=== PATIENT | male | born 1945 | race Caucasian/White ===

== ENCOUNTER 2016-04-21 13:36 | Inpatient (IN) | payer OTHER ==
[2016-04-21] VITALS (8 sets, daily range): BP systolic 114–145; BP diastolic 57–68
[~2016-04-21] VITALS: Ht 177.8 cm; Wt 124.9 kg
[~2016-04-21 13:36] MED LIST: ALBUTEROL SULF8.5 GM IH; ALLOPURINAL; ALLOPURINOL300 MG PO; ASPIR-LOW81 MG PO; BENICAR; BENICAR20 MG GT; CALCIUM 500 MG1 EACH PO; CARVEDILOL; CARVEDILOL12.5 MG PO; CARVEDILOL25 MG PO; CENTRUM SILVER1 EAC3 PO; CO Q-10200 MG PO; COREG25 M1 PO; COUMADIN; ESSENTIAL DAIL1 EACH PO; FENOFIBRATE160 M1 PO; FISH OIL 1,0001 EAC7 PO; FISH OIL CONC1 EACH PO; GLUCOSA-CHOND-1 EACH PO; GLUCOSAMINE1000 MG PO; LANTUS 10100 UNITS/ SC; LANTUS 3 M100 UNITS/ SC; LANTUS 3 M100 UNITS1 SC; LASIX; LASIX20 MG PO; LIPITOR80 MG PO; LOPRESSOR50 MG PO; Levothroid,Synthroid GT; Lopressor GT; NOVOLOG 10100 UNITS/ SC; NOVOLOG PE100 UNITS/ SC; NOVOLOG100 UNIT/1 SQ; POTASSIUM-9999 MG PO; PROCARDIA XL30 MG PO; ROZEREM8 MG PO; SYNTHROID112 MCG PO; SYNTHROID125 MCG PO; SYNTHROID137 MCG PO; TRADJENTA5 MG PO; TRICOR; VIAGRA100 MG PO; VIAGRA25 MG PO; VIAGRA50 MG PO; VITAMIN B-6100 MG PO; VITAMIN B-6200 MG PO; VITAMIN D1000 INTUN PO; VITAMIN D31000 UNI2 PO; Vicodin,Norco 5/325 GT; WARFARIN SODIUM4 MG PO; WARFARIN SODIUM5 MG PO
[2016-04-21 15:02] LABS: HEMATOCRIT 15.4 % (38.0-50.0); MCH 24.3 PG (29.0-34.0); MCHC 29.2 G/DL (30.0-36.0); MCV 83.2 FL (86-99); MEAN PLAT.VOLUME 11.1 uM^3 (9.0-12.4); PLATELET COUNT 279 K/uL (156-360); RBC DIS.WIDTH-CV 17.5 % (11.8-14.6); RBC DIS.WIDTH-SD 47.7 % (39-53); RED BLOOD COUNT 1.85 M/uL (4.00-5.50); WHITE BLOOD COUNT 10.7 K/uL (4.1-10.2)
[2016-04-21 15:03] LABS: CHLORIDE 112 mEq/L (99-109); SODIUM 133 mEq/L (136-147)
[2016-04-21 15:05] LABS: GLUCOSE 208 mg/dL (70-99)
[2016-04-21 15:06] LABS: ANION GAP 8 MEQ/L (2-14)
[2016-04-21 15:09] LABS: GFR ESTIMATE (CALCULATED) > 59 mL/min/; PTT 47.6 (25-32); UREA NITROGEN (BUN) 64 mg/dL (9-23)
[2016-04-21 15:16] LABS: INTER. NORMALIZED RATIO 7.5; PROTHROMBIN TIME 81.4 (9.2-11.2); TROP-I INTERPRETATION NEGATIVE; TROPONIN-I 0.07 ng/mL (0.0-0.30)
[2016-04-21] MEDS ORDERED: CIALIS5 MG PO (15:59)
[2016-04-21] MEDS ORDERED: COREG6.25 M1 PO (16:00)
[2016-04-21] MEDS ORDERED: PEPTO-BISMOL T262 MG PO (16:01)
[2016-04-21] MEDS ORDERED: ALIGN4 MG PO (16:02)
[2016-04-21] MEDS ORDERED: HUMALOG100 UNIT/2 SC (16:05)
[2016-04-21] MEDS ORDERED: LEVEMIR100 UNIT/2 SC ×2 (16:08)
[2016-04-21] MEDS ORDERED: COZAAR50 MG PO (16:10)
[2016-04-21] MEDS ORDERED: COUMADIN2 MG PO (16:11)
[2016-04-21] MEDS ORDERED: VITAMIN B-6200 M1 PO (16:16)
[2016-04-21] MEDS ORDERED: TRAZODONE HCL50 MG PO (16:18)
[2016-04-21] MEDS ORDERED: PROAIR HFA8.5 GM IH (16:19)
[2016-04-21 23:23] LABS: POINT-OF-CARE METER ID UU13113747
[2016-04-22] VITALS (7 sets, daily range): BP systolic 122–172; BP diastolic 59–71
[2016-04-22 00:30] LABS: HEMATOCRIT 19.6 % (38.0-50.0); MCH 27.5 PG (29.0-34.0); MCHC 32.1 G/DL (30.0-36.0); MCV 85.6 FL (86-99); MEAN PLAT.VOLUME 11.9 uM^3 (9.0-12.4); PLATELET COUNT 246 K/uL (156-360); RBC DIS.WIDTH-CV 16.9 % (11.8-14.6); RBC DIS.WIDTH-SD 48.6 % (39-53); RED BLOOD COUNT 2.29 M/uL (4.00-5.50)
[2016-04-22 07:53] LABS: MCH 26.5 PG (29.0-34.0); MCHC 31.1 G/DL (30.0-36.0); MCV 85.2 FL (86-99); MEAN PLAT.VOLUME 11.3 uM^3 (9.0-12.4); PLATELET COUNT 246 K/uL (156-360); RBC DIS.WIDTH-CV 16.5 % (11.8-14.6); RBC DIS.WIDTH-SD 47.5 % (39-53); RED BLOOD COUNT 2.23 M/uL (4.00-5.50); WHITE BLOOD COUNT 7.4 K/uL (4.1-10.2)
[2016-04-22 08:13] LABS: INTER. NORMALIZED RATIO 5.2; PROTHROMBIN TIME 56.1 (9.2-11.2)
[2016-04-22 08:18] LABS: ALKALINE PHOSPHATASE 24 IU/L (3-129); ANION GAP 7 MEQ/L (2-14); CHLORIDE 113 MEQ/L (99-109); GFR ESTIMATE (CALCULATED) 58 mL/min/; GLUCOSE 202 mg/dL (70-99); POTASSIUM 4.9 MEQ/L (3.7-5.4); SAMPLE HEMOLYSIS CHECK 0; SAMPLE ICTERIC CHECK 0; SAMPLE LIPEMIA CHECK 0; SODIUM 138 MEQ/L (136-147); TOTAL BILIRUBIN 0.3 MG/DL (0.0-1.0); UREA NITROGEN (BUN) 54 mg/dL (9-23)
[2016-04-22 08:21] LABS: TROP-I INTERPRETATION INDETERMINATE; TROPONIN-I 0.39 ng/mL (0.0-0.30)
[2016-04-22 08:59] LABS: POINT-OF-CARE METER ID UU13113747
[2016-04-22 12:19] LABS: POINT-OF-CARE METER ID UU13113747
[2016-04-22 16:53] LABS: POINT-OF-CARE METER ID UU13113781; POINT-OF-CARE USER ID ENVKC36
[2016-04-22 21:18] LABS: HEMATOCRIT 18.6 % (38.0-50.0); MCH 27.2 PG (29.0-34.0); MCHC 32.8 G/DL (30.0-36.0); MEAN PLAT.VOLUME 11.7 uM^3 (9.0-12.4); PLATELET COUNT 240 K/uL (156-360); RBC DIS.WIDTH-CV 18.4 % (11.8-14.6); RBC DIS.WIDTH-SD 53.6 % (39-53); RED BLOOD COUNT 2.24 M/uL (4.00-5.50); WHITE BLOOD COUNT 8.4 K/uL (4.1-10.2)
[2016-04-22 21:49] LABS: TROP-I INTERPRETATION NEGATIVE; TROPONIN-I 0.21 ng/mL (0.0-0.30)
[2016-04-23] VITALS (11 sets, daily range): BP systolic 105–162; BP diastolic 50–72
[2016-04-23 07:10] LABS: INTER. NORMALIZED RATIO 2.7; PROTHROMBIN TIME 27.9 (9.2-11.2)
[2016-04-23 07:29] LABS: TROP-I INTERPRETATION NEGATIVE; TROPONIN-I 0.19 ng/mL (0.0-0.30)
[2016-04-23 07:55] LABS: POINT-OF-CARE METER ID UU13113698; POINT-OF-CARE USER ID ENVKC36
[2016-04-23 11:41] LABS: POINT-OF-CARE METER ID UU13113781; POINT-OF-CARE USER ID ENVKC36
[2016-04-23 16:46] LABS: HEMATOCRIT 19.3 % (38.0-50.0); MCH 26.2 PG (29.0-34.0); MCHC 31.6 G/DL (30.0-36.0); MCV 82.8 FL (86-99); MEAN PLAT.VOLUME 11.1 uM^3 (9.0-12.4); PLATELET COUNT 205 K/uL (156-360); RBC DIS.WIDTH-CV 18.4 % (11.8-14.6); RBC DIS.WIDTH-SD 53.6 % (39-53); RED BLOOD COUNT 2.33 M/uL (4.00-5.50)
[2016-04-23 16:47] LABS: WHITE BLOOD COUNT 5.7 K/uL (4.1-10.2)
[2016-04-23 17:04] LABS: POINT-OF-CARE METER ID UU13113781; POINT-OF-CARE USER ID ENVKC36
[2016-04-23 21:37] LABS: POINT-OF-CARE METER ID UU14174216
[2016-04-24] VITALS (13 sets, daily range): BP systolic 122–151; BP diastolic 56–70
[2016-04-24 06:37] LABS: HEMATOCRIT 20.6 % (38.0-50.0); MCH 26.5 PG (29.0-34.0); MCHC 31.6 G/DL (30.0-36.0); MCV 84.1 FL (86-99); MEAN PLAT.VOLUME 11.1 uM^3 (9.0-12.4); PLATELET COUNT 195 K/uL (156-360); RBC DIS.WIDTH-CV 18.3 % (11.8-14.6); RBC DIS.WIDTH-SD 54.3 % (39-53); RED BLOOD COUNT 2.45 M/uL (4.00-5.50); WHITE BLOOD COUNT 5.6 K/uL (4.1-10.2)
[2016-04-24 06:47] LABS: ALKALINE PHOSPHATASE 25 IU/L (3-129); ANION GAP 6 MEQ/L (2-14); CHLORIDE 116 MEQ/L (99-109); GFR ESTIMATE (CALCULATED) > 59 mL/min/; GLUCOSE 152 mg/dL (70-99); POTASSIUM 4.2 MEQ/L (3.7-5.4); SAMPLE HEMOLYSIS CHECK 0; SAMPLE ICTERIC CHECK 0; SAMPLE LIPEMIA CHECK 0; SODIUM 142 MEQ/L (136-147)
[2016-04-24 06:50] LABS: INTER. NORMALIZED RATIO 2.1; PROTHROMBIN TIME 21.4 (9.2-11.2)
[2016-04-24 07:00] LABS: TOTAL BILIRUBIN 0.4 MG/DL (0.0-1.0); UREA NITROGEN (BUN) 24 mg/dL (9-23)
[2016-04-24 11:34] LABS: POINT-OF-CARE METER ID UU13113781
[2016-04-24 16:36] LABS: POINT-OF-CARE METER ID UU14174216
[2016-04-24 17:47] LABS: MCV 84.1 FL (86-99)
== END 2016-04-24 18:36 | disposition other institution (70) | DRG 378 ==
LOC: EME 13:36 → 4EAST 17:01 → EDOF 17:01 → 4EAST 04-22 14:24
PROVIDERS: Emergency Medicine; Internal Medicine
PROC: 30233N1 Transfusion of Nonautologous Red Blood Cells into Peripheral Vein, Percutaneous Approach (ICD-10-PCS; principal; 2016-04-21)
PROC: 0D598ZZ Destruction of Duodenum, Via Natural or Artificial Opening Endoscopic (ICD-10-PCS; 2016-04-23)
DX: K92.2 Gastrointestinal hemorrhage, unspecified (principal); D62 Acute posthemorrhagic anemia; D68.9 Coagulation defect, unspecified; E87.2 Acidosis; E11.65 Type 2 diabetes mellitus with hyperglycemia; K92.1 Melena; I10 Essential (primary) hypertension; E78.5 Hyperlipidemia, unspecified; E03.9 Hypothyroidism, unspecified; I25.10 Atherosclerotic heart disease of native coronary artery without angina pectoris; Z95.2 Presence of prosthetic heart valve; Z95.1 Presence of aortocoronary bypass graft; Z79.01 Long term (current) use of anticoagulants
CPT/HCPCS: 36415; 74176; 80048; 80053; 82948; 84484; 85014; 85018; 85027; 85610; 85730; 86850; 86900; 86901; 86920; 93005; 99281; 99285; B4087; C9113; J1815; J3010; J7030; P9016

== ENCOUNTER → 2016-08-01 | Outpatient (CLI) | payer OTHER ==
[~2016-08-01] VITALS: Ht 177.8 cm; Wt 127.0 kg
[~2016-08-01] MED LIST changes: +ALIGN4 MG PO; +BASAGLAR K100 UNIT/1 SC; +CIALIS10 MG PO; +CIALIS20 MG PO; +CIALIS5 MG PO; +COREG6.25 M1 PO; +COUMADIN1 MG PO; +COUMADIN2 MG PO; +COZAAR50 MG PO; +FEROSUL325 MG PO; +HUMALOG100 UNIT/2 SC; +LEVEMIR100 UNIT/2 SC; +LOVENOX80 MG/0.8 SC; +PEPTO-BISMOL T262 MG PO; +PROAIR HFA8.5 GM IH; +PROTONIX40 MG PO; +TRAZODONE HCL50 MG PO; +VITAMIN B-6200 M1 PO; +VITAMIN D31000 UNIT PO
[2016-08-01 13:08] LABS: POINT-OF-CARE METER ID UU13113694
[2016-08-01 13:51] LABS: HEMATOCRIT 33.5 % (38.0-50.0); MCHC 29.9 G/DL (30.0-36.0); MCV 80.3 FL (86-99); PLATELET COUNT 220 K/uL (156-360); RBC DIS.WIDTH-CV 25.4 % (11.8-14.6); RBC DIS.WIDTH-SD 72.3 % (39-53); RED BLOOD COUNT 4.17 M/uL (4.00-5.50); WHITE BLOOD COUNT 4.1 K/uL (4.1-10.2)
[2016-08-01 14:01] LABS: PROTHROMBIN TIME 12.1 (9.2-11.2); PTT 30.3 (25-32)
[2016-08-01 14:07] LABS: INTER. NORMALIZED RATIO 1.2
[2016-08-01 15:04] LABS: POINT-OF-CARE METER ID UU13113819
== END | disposition home or self-care (01) ==
LOC: AMB 12:32
PROVIDERS: Anesthesiology; Internal Medicine
DX: K29.70 Gastritis, unspecified, without bleeding (principal); K25.6 Chronic or unspecified gastric ulcer with both hemorrhage and perforation; K57.30 Diverticulosis of large intestine without perforation or abscess without bleeding; I48.91 Unspecified atrial fibrillation; D64.9 Anemia, unspecified; E11.9 Type 2 diabetes mellitus without complications; I10 Essential (primary) hypertension; K21.9 Gastro-esophageal reflux disease without esophagitis; E78.5 Hyperlipidemia, unspecified; E03.9 Hypothyroidism, unspecified; Z83.3 Family history of diabetes mellitus; Z82.49 Family history of ischemic heart disease and other diseases of the circulatory system; Z79.01 Long term (current) use of anticoagulants; Z79.899 Other long term (current) drug therapy; Z88.0 Allergy status to penicillin; Z79.4 Long term (current) use of insulin; I25.2 Old myocardial infarction
CPT/HCPCS: 82948; 85027; 85610; 85730; 88305; 88342 TC; J2250; J3010

== ENCOUNTER 2017-06-24 17:49 | Inpatient (IN) | payer OTHER ==
[~2017-06-24] VITALS: Ht 177.8 cm; Wt 136.7 kg
[2017-06-24 18:53] LABS: CHLORIDE 111 mEq/L (99-109); HEMOGLOBIN 6.5 G/DL (12.5-16.6); MCH 31.9 PG (29.0-34.0); MCHC 32.5 G/DL (30.0-36.0); NRBC (%) 0.8 /100 WBC (0-0); PLATELET COUNT 259 K/uL (156-360); POTASSIUM 4.5 mEq/L (3.7-5.4); RBC DIS.WIDTH-CV 17.5 % (11.8-14.6); RBC DIS.WIDTH-SD 58.4 % (39-53); RED BLOOD COUNT 2.04 M/uL (4.00-5.50); SODIUM 137 mEq/L (136-147); WHITE BLOOD COUNT 11.5 K/uL (4.1-10.2)
[2017-06-24 18:54] LABS: GLUCOSE 91 mg/dL (70-99)
[2017-06-24 18:59] LABS: CREATININE 1.6 mg/dL (0.6-1.3); GFR ESTIMATE (CALCULATED) 46 mL/min/ (58.99-99999); UREA NITROGEN (BUN) 60 mg/dL (9-23)
[2017-06-24 21:02] LABS: INTER. NORMALIZED RATIO 3.2
[2017-06-24 21:04] LABS: PTT 42.4 SEC (25-37)
[2017-06-24 21:14] LABS: ALBUMIN 3.5 g/dL (3.2-4.8)
[2017-06-24 21:15] LABS: MAGNESIUM 1.8 mg/dL (1.3-2.7)
[2017-06-24 21:17] LABS: TOTAL PROTEIN 5.4 g/dL (6.4-8.3)
[2017-06-24 21:19] LABS: TOTAL BILIRUBIN 0.5 mg/dL (0.0-1.0)
[2017-06-24 21:20] LABS: ALKALINE PHOSPHATASE 28 IU/L (3-129)
[2017-06-24 21:22] LABS: AST (GOT) 25 IU/L (2-34); DIRECT BILIRUBIN 0.2 mg/dL (0.0-0.3)
[2017-06-24 21:23] LABS: ALT (GPT) 24 IU/L (3-49)
[2017-06-24 21:28] LABS: TROP-I INTERPRETATION NEGATIVE; TROPONIN-I 0.03 ng/mL (0.0-0.30)
[2017-06-24 22:13] LABS: THYROTROPIN (TSH) 6.5 MIU/L (0.4-5.5)
[2017-06-24 22:14] VITALS: BP 127/58
[2017-06-24] MEDS ORDERED: VICTOZA0.6 MG/0.1 SC (22:20)
[2017-06-24] MEDS ORDERED: VITAMIN B-6100 MG PO (22:23)
[2017-06-24] MEDS ORDERED: VITAMIN D31000 UNIT PO (22:24)
[2017-06-24] MEDS ORDERED: ALIGN4 MG PO (22:30)
[2017-06-24] MEDS ORDERED: ADULT ASPIRIN R81 MG PO (22:32)
[2017-06-24 22:38] VITALS: BP 128/59
[2017-06-25] VITALS (11 sets, daily range): BP systolic 112–152; BP diastolic 58–74
[2017-06-25 09:24] LABS: HEMATOCRIT 28.2 % (38.0-50.0); MCH 30.6 PG (29.0-34.0); MCHC 32.6 G/DL (30.0-36.0); NRBC (%) 0.6 /100 WBC (0-0); PLATELET COUNT 254 K/uL (156-360); RBC DIS.WIDTH-CV 17.8 % (11.8-14.6); RBC DIS.WIDTH-SD 53.7 % (39-53); WHITE BLOOD COUNT 8.4 K/uL (4.1-10.2)
[2017-06-25 09:25] LABS: HEMOGLOBIN 9.2 G/DL (12.5-16.6); MCV 93.7 FL (86-99); RED BLOOD COUNT 3.01 M/uL (4.00-5.50)
[2017-06-25 09:47] LABS: TROP-I INTERPRETATION NEGATIVE; TROPONIN-I 0.03 ng/mL (0.0-0.30)
[2017-06-25 09:53] LABS: ALBUMIN 3.5 G/DL (3.2-4.8); ALKALINE PHOSPHATASE 26 IU/L (3-129); ALT (GPT) 22 IU/L (3-49); AST (GOT) 23 IU/L (2-34); CHLORIDE 109 MEQ/L (99-109); CREATININE 1.6 MG/DL (0.6-1.3); GFR ESTIMATE (CALCULATED) 46 mL/min/ (58.99-99999); POTASSIUM 4.2 MEQ/L (3.7-5.4); SODIUM 140 MEQ/L (136-147); TOTAL PROTEIN 5.4 G/DL (6.4-8.3); UREA NITROGEN (BUN) 49 mg/dL (9-23)
[2017-06-25 09:57] LABS: INTER. NORMALIZED RATIO 2.8; PTT 38.7 SEC (25-37)
[2017-06-25 10:01] LABS: GLUCOSE 169 mg/dL (70-99); TOTAL BILIRUBIN 0.7 MG/DL (0.0-1.0)
[2017-06-25 16:02] LABS: HEMATOCRIT 27.3 % (38.0-50.0); HEMOGLOBIN 9.1 G/DL (12.5-16.6); MCH 31.3 PG (29.0-34.0); MCHC 33.3 G/DL (30.0-36.0); MCV 93.8 FL (86-99); NRBC (%) 0.8 /100 WBC (0-0); PLATELET COUNT 241 K/uL (156-360); RBC DIS.WIDTH-CV 18.6 % (11.8-14.6); RBC DIS.WIDTH-SD 55.7 % (39-53); RED BLOOD COUNT 2.91 M/uL (4.00-5.50); WHITE BLOOD COUNT 7.5 K/uL (4.1-10.2)
[2017-06-25 16:22] LABS: TROP-I INTERPRETATION NEGATIVE; TROPONIN-I 0.02 ng/mL (0.0-0.30)
[2017-06-26] VITALS (15 sets, daily range): BP systolic 116–166; BP diastolic 56–72
[2017-06-26 01:11] LABS: HEMATOCRIT 25.1 % (38.0-50.0); HEMOGLOBIN 8.1 G/DL (12.5-16.6); MCH 30.6 PG (29.0-34.0); MCHC 32.3 G/DL (30.0-36.0); MCV 94.7 FL (86-99); NRBC (%) 0.3 /100 WBC (0-0); PLATELET COUNT 226 K/uL (156-360); RBC DIS.WIDTH-CV 18.6 % (11.8-14.6); RBC DIS.WIDTH-SD 56.8 % (39-53); RED BLOOD COUNT 2.65 M/uL (4.00-5.50); WHITE BLOOD COUNT 6.4 K/uL (4.1-10.2)
[2017-06-26 05:50] LABS: HEMATOCRIT 25.4 % (38.0-50.0); HEMOGLOBIN 8.2 G/DL (12.5-16.6); MCH 30.4 PG (29.0-34.0); MCHC 32.3 G/DL (30.0-36.0); MCV 94.1 FL (86-99); NRBC (%) 0.3 /100 WBC (0-0); PLATELET COUNT 226 K/uL (156-360); RBC DIS.WIDTH-CV 18.7 % (11.8-14.6); RBC DIS.WIDTH-SD 57.1 % (39-53); WHITE BLOOD COUNT 6.7 K/uL (4.1-10.2)
[2017-06-26 05:59] LABS: INTER. NORMALIZED RATIO 2.6
[2017-06-26 07:54] LABS: CHLORIDE 112 MEQ/L (99-109); CREATININE 1.4 MG/DL (0.6-1.3); GFR ESTIMATE (CALCULATED) 53 mL/min/ (58.99-99999); GLUCOSE 177 mg/dL (70-99); POTASSIUM 4.2 MEQ/L (3.7-5.4); SODIUM 140 MEQ/L (136-147); UREA NITROGEN (BUN) 38 mg/dL (9-23)
[2017-06-26 20:01] LABS: HEMOGLOBIN 8.9 G/DL (12.5-16.6); MCH 29.8 PG (29.0-34.0); MCHC 31.8 G/DL (30.0-36.0); MCV 93.6 FL (86-99); PLATELET COUNT 234 K/uL (156-360); RBC DIS.WIDTH-CV 19.9 % (11.8-14.6); RBC DIS.WIDTH-SD 62.1 % (39-53); RED BLOOD COUNT 2.99 M/uL (4.00-5.50); WHITE BLOOD COUNT 5.4 K/uL (4.1-10.2)
[2017-06-27 04:43] VITALS: BP 157/67
[2017-06-27 06:37] LABS: INTER. NORMALIZED RATIO 1.9
[2017-06-27 06:41] LABS: HEMATOCRIT 28.8 % (38.0-50.0); MCH 29.7 PG (29.0-34.0); MCHC 31.3 G/DL (30.0-36.0); PLATELET COUNT 213 K/uL (156-360); RBC DIS.WIDTH-CV 19.9 % (11.8-14.6); RBC DIS.WIDTH-SD 64.6 % (39-53); RED BLOOD COUNT 3.03 M/uL (4.00-5.50); WHITE BLOOD COUNT 5.4 K/uL (4.1-10.2)
[2017-06-27 06:45] LABS: PTT 33.5 SEC (25-37)
[2017-06-27 07:04] LABS: CHLORIDE 111 MEQ/L (99-109); CREATININE 1.2 MG/DL (0.6-1.3); GFR ESTIMATE (CALCULATED) > 59 mL/min/ (58.99-99999); GLUCOSE 249 mg/dL (70-99); POTASSIUM 4.3 MEQ/L (3.7-5.4); SODIUM 139 MEQ/L (136-147); UREA NITROGEN (BUN) 24 mg/dL (9-23)
[2017-06-27] MEDS ORDERED: LOVENOX150 MG/1 M SC (08:28)
[2017-06-27 08:29] VITALS: BP 174/72
== END 2017-06-27 11:09 | disposition home or self-care (01) | DRG 378 ==
LOC: EME 17:49 → 3EAST 23:02 → EDOF 23:02 → ENRESERV 23:04 → 3EAST 06-25 00:19
PROVIDERS: Emergency Medicine; Hospitalist; Internal Medicine; Internal Medicine Gastroenterology
PROC: 30233N1 Transfusion of Nonautologous Red Blood Cells into Peripheral Vein, Percutaneous Approach (ICD-10-PCS; principal; 2017-06-24)
PROC: 30233R1 Transfusion of Nonautologous Platelets into Peripheral Vein, Percutaneous Approach (ICD-10-PCS; 2017-06-26)
PROC: 0DJ08ZZ Inspection of Upper Intestinal Tract, Via Natural or Artificial Opening Endoscopic (ICD-10-PCS; 2017-06-26)
DX: K29.61 Other gastritis with bleeding (principal); D62 Acute posthemorrhagic anemia; N17.9 Acute kidney failure, unspecified; K31.811 Angiodysplasia of stomach and duodenum with bleeding; E66.01 Morbid (severe) obesity due to excess calories; I25.10 Atherosclerotic heart disease of native coronary artery without angina pectoris; Z68.41 Body mass index [BMI] 40.0-44.9, adult; E11.9 Type 2 diabetes mellitus without complications; I10 Essential (primary) hypertension; Z95.2 Presence of prosthetic heart valve; E03.9 Hypothyroidism, unspecified; K21.0 Gastro-esophageal reflux disease with esophagitis; E78.5 Hyperlipidemia, unspecified; K57.90 Diverticulosis of intestine, part unspecified, without perforation or abscess without bleeding; Z79.01 Long term (current) use of anticoagulants; D68.32 Hemorrhagic disorder due to extrinsic circulating anticoagulants; T45.515A Adverse effect of anticoagulants, initial encounter; Z95.1 Presence of aortocoronary bypass graft; Z85.820 Personal history of malignant melanoma of skin
CPT/HCPCS: 36415; 80048; 80053; 80076; 82330; 82948; 83540; 83735; 84439; 84443; 84466; 84484; 85014; 85018; 85027; 85610; 85730; 86850; 86900; 86901; 86920; 93005; 99281; 99285; C9113; J1650; J1815; J1940; J2250; J7030; J7040; P9016; P9017